=== PATIENT | female | born 1990 | race Hispanic/Latino ===

== ENCOUNTER 2018-06-20 16:47 | Emergency (ER) | payer OTHER ==
[~2018-06-20] VITALS: Ht 154.9 cm; Wt 72.6 kg
--- NOTE | 2018-06-20 17:30 | NUR ---
PATIENTS SISTER CHRISTIANO AT BEDSIDE
--- NOTE | 2018-06-20 17:45 | NUR ---
SHE SAYS SHE CONSTANTLY THINKS OF HURTING HERSELF EVERY MINUTE OF THE DAY EVEN WHEN IN SHOWER. 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 SHE TOLD HIM HOW SHE FELT, THEY CALLED THE HOTLINE TOGETHER AND WAS TOLD TO GO TO EMERGENCY ROOM PATIENT OPENING UP MORE IN CONVERSATION. HER GRANDFATHER 4 YEARS AGO AND HE IS THE ONE SHE USED TO TALK TO AND HE WOULD LISTEN TO HER. SHE HAS A 2 CHILDRENT 3 AND 9. SHE HAS AN OFF AND BOYFRIEND OF 4 YEARS (CHILDREN FATHER) . THAT SHE ATTEMPTS TO SPEAK WITH ABOUT HOW SHE IS FEELING AND HE TELLS HER SHE IS CRAZY FOR THINKING LIKE THIS. HER MOTHER ALSO ATTEMPTED SUICIDE WHEN THE FATHER CHEATED ON HER, BUT WHEN SHE TALKS TO HER MOM SHE FEELS SHE IS NOT LISTENING
[2018-06-20 17:58] LABS: BASOPHILS % 0.3 % (0.0-1.0); EOSINOPHILS % 0.3 % (0.0-6.0); HEMATOCRIT 39.3 % (34.2-44.1); HEMOGLOBIN 13.5 g/dL (12.0-16.0); LYMPHOCYTES % 33.5 % (18.0-39.1); MEAN CORPUSCULAR HEMOGLOBIN 30.6 pg (28-32); MEAN CORPUSCULAR HGB CONC 34.4 g/dL (31-35); MEAN CORPUSCULAR VOLUME 89.1 fL (81-99); MONOCYTES # (AUTO) 0.4 (0.2-0.8); NEUTROPHILS # (AUTO) 3.4 (2.1-6.9); NEUTROPHILS % 58.7 % (38.7-80.0); PLATELET COUNT 263 x10e3/uL (140-360); RED BLOOD COUNT 4.41 x10e6/uL (3.6-5.1); RED CELL DISTRIBUTION WIDTH 12.4 % (11.7-14.4)
[2018-06-20 18:07] LABS: CLARITY,URINE SL CLOUDY (CLEAR); COLOR,URINE YELLOW (YELLOW); LEUKOCYTE ESTERASE ,URINE 2+ (NEGATIVE)
[2018-06-20 18:08] LABS: BILIRUBIN,URINE NEGATIVE (NEGATIVE); KETONES,URINE TRACE (NEGATIVE); NITRITE,URINE NEGATIVE (NEGATIVE); PROTEIN,URINE DIPSTICK NEGATIVE (NEGATIVE); URINE UROBILINOGEN 0.2 mg/dL (0.2 - 1)
[2018-06-20 18:09] LABS: AMPHETAMINES SCREEN,URINE NEGATIVE (NEGATIVE); BENZODIAZEPINES SCREEN,URINE NEGATIVE (NEGATIVE); PHENCYCLIDINE SCREEN,URINE NEGATIVE (NEGATIVE); PREGNANCY TEST, URINE NEGATIVE (NEGATIVE)
[2018-06-20 18:15] LABS: BACTERIA,URINE MANY /HPF; EPITHELIAL CELLS,URINE MANY /LPF; RBC,URINE 0-5 /HPF (0-5)
[2018-06-20 18:17] LABS: ALANINE AMINOTRANSFERASE 25 IU/L (0-55); ALBUMIN 3.8 g/dL (3.5-5.0); ALBUMIN/GLOBULIN RATIO 1.1 (0.8-2.0); ALKALINE PHOSPHATASE 46 IU/L (40-150); ANION GAP 12.3 mmol/L (8-16); BLOOD UREA NITROGEN 10 mg/dL (7-26); BUN/CREATININE RATIO 14 (6-25); CALCIUM 9.7 mg/dL (8.4-10.2); CARBON DIOXIDE 25 mmol/L (22-29); CHLORIDE 105 mmol/L (98-107); CREATINE KINASE 85 IU/L (29-168); CREATININE, SERUM 0.72 mg/dL (0.57-1.11); EST GLOMERULAR FILTRATION RATE > 60 ML/MIN (60-); GLUCOSE 97 mg/dL (74-118); POTASSIUM 4.3 mmol/L (3.5-5.1); SODIUM 138 mmol/L (136-145)
--- NOTE | 2018-06-20 18:18 | NUR ---
DR. GOLDEN AT BEDSIDE EVALUATING PATIENT
--- NOTE | 2018-06-20 18:23 | NUR ---
PATIENT AMBULATED TO BATHROOM
[2018-06-20 18:25] LABS: ACETAMINOPHEN < 3 ug/mL (10-30); SALICYLATE < 5.0 mg/dL (0-30)
[2018-06-20] MEDS ORDERED: BIRTH CONTROL PO (18:40)
--- NOTE | 2018-06-20 18:40 | NUR ---
PATIENT HUNGRY, HER SISTER WHEN TO SUBWAY TO PICK HER UP FOOD
[2018-06-20] MEDS ORDERED: LEVOFLOXACIN 500 MG TAB PO SCH (19:00)
--- NOTE | 2018-06-20 19:00 | NUR ---
NIGHT TECH AT BEDSIDE
--- NOTE | 2018-06-20 19:06 | NUR ---
MAT TEAM CALLED. AWAITING CALL BACK TO GET ETA ON ASSESOR
--- NOTE | 2018-06-20 19:15 | NUR ---
PATIENT STATES SHE WAS HERE A YEAR AGO AND HAD ATTEMPTED TO CUT HERSELF. WHEN NON DESTRUCTIVE EVALUATION TECHNICIAN WAS CALLED OUT, SHE WAS LIED TO THEM ABOUT HER SUICIDAL INTENTIONS AND ENDED UP BEING DISCHARGED
--- NOTE | 2018-06-20 19:16 | NUR ---
BEDSIDE REPORT COMPLETED. PATIENT SITTING UP IN BED EATING SUBWAY. SISTER AND TECH AT BEDSIDE, LIGHTS OFF
[2018-06-20 19:25] LABS: THYROID STIMULATING HORMONE 0.911 uIU/mL (0.350-4.940)
--- NOTE | 2018-06-20 19:36 | NUR ---
PT SITTING UP IN BED AT THIS TIME EATING, SISTER AND 1:1 AT BEDSIDE. PT ENGAGING IN CONVERSATION, MAKING EYE CONTACT AND SHOWING APPROPRIATE FACIAL EXPRESSIONS. VSS, NO SIGNS OF DISTRESS NOTED. PT UPDATED ON PLAN OF CARE (MAT TEAM MOBILIZED). WILL CONTINUE TO MONITOR.
--- NOTE | 2018-06-20 21:28 | NUR ---
MAT TEAM HAS COMPLETED EVALUATION AND PT HAS BEEN ACCEPTED TO [facility]. AWAITING NURSE TO NURSE CALL. WILL CONTINUE TO MONITOR. PT IS STILL IN GOOD SPIRITS AND IS IN AGREEANCE TO BEING TRANSFERRED.
--- NOTE | 2018-06-20 21:50 | NUR ---
REPORT CALLED TO MARCOS TALAVERA AT THIS TIME.
--- NOTE | 2018-06-20 23:14 | NUR ---
EMS CALLED AT THIS TIME FOR TRANSPORT.
[2018-06-20 23:45] VITALS: BP 108/72
--- NOTE | 2018-06-20 23:55 | NUR ---
PT DEPARTED AT THIS TIME VIA EMS.
== END 2018-06-20 23:55 ==
LOC: ER 16:47
DX: R45.851 Suicidal ideations (principal); F33.1 Major depressive disorder, recurrent, moderate
CPT/HCPCS: 36415; 80053; 80307; 80320; 80329; 81001; 81025; 82550; 82553; 84443; 84484; 85025; 87086; 93005; 99283